=== PATIENT | male | born 1980 | race Caucasian/White ===

== ENCOUNTER 2016-09-03 10:12 | Inpatient (IN) | payer OTHER ==
[~2016-09-03 10:12] MED LIST: IBUPROFEN800 MG PO; KEFLEX CAP 500500 MG PO; LISINOPRIL10 MG PO; NORCO 5-325 TA1 EACH PO; PERCOCET 10-321 EACH PO; PREDNISONE DOSE PACK; VENLAFAXINE H37.5 MG PO; VITAMIN C 500500 MG PO; VITAMIN D50000 UNIT PO
[2016-09-03 11:48] LABS: HEMOGLOBIN 12.7 gm/dl (14.0-17.5); RED BLOOD COUNT 4.42 M/UL (4.20-5.50)
[2016-09-03 12:06] LABS: BUN/CREATININE RATIO 13 (0-10)
[2016-09-03] MEDS ORDERED: PAXIL20 MG PO (17:46)
[2016-09-04 04:53] LABS: HEMOGLOBIN 12.5 gm/dl (14.0-17.5); RED BLOOD COUNT 4.36 M/UL (4.20-5.50); WHITE BLOOD COUNT 9.7 K/UL (4.5-11.0)
[2016-09-04 05:28] LABS: BUN/CREATININE RATIO 13 (0-10)
[2016-09-05 05:43] LABS: HEMOGLOBIN 13.6 gm/dl (14.0-17.5); RED BLOOD COUNT 4.68 M/UL (4.20-5.50)
[2016-09-05 05:48] LABS: WHITE BLOOD COUNT 7.2 K/UL (4.5-11.0)
[2016-09-05 05:56] LABS: BUN/CREATININE RATIO 11 (0-10)
[2016-09-06 06:05] LABS: BUN/CREATININE RATIO 14 (0-10)
[2016-09-07 06:24] LABS: HEMOGLOBIN 11.8 gm/dl (14.0-17.5)
[2016-09-07 07:15] LABS: BUN/CREATININE RATIO 10 (0-10)
[2016-09-08 06:16] LABS: BUN/CREATININE RATIO 7 (0-10)
[2016-09-10 05:59] LABS: RED BLOOD COUNT 4.23 M/UL (4.20-5.50); WHITE BLOOD COUNT 5.4 K/UL (4.5-11.0)
[2016-09-10 06:06] LABS: BUN/CREATININE RATIO 9 (0-10)
[2016-09-15 13:36] LABS: BUN/CREATININE RATIO 11 (0-10)
[2016-09-16 04:29] LABS: HEMOGLOBIN 12.1 gm/dl (14.0-17.5); RED BLOOD COUNT 4.25 M/UL (4.20-5.50); WHITE BLOOD COUNT 6.9 K/UL (4.5-11.0)
[2016-09-16 04:51] LABS: BUN/CREATININE RATIO 13 (0-10)
[2016-09-17 04:54] LABS: HEMOGLOBIN 12.5 gm/dl (14.0-17.5); RED BLOOD COUNT 4.37 M/UL (4.20-5.50); WHITE BLOOD COUNT 6.6 K/UL (4.5-11.0)
[2016-09-17 05:27] LABS: BUN/CREATININE RATIO 10 (0-10)
[2016-09-21 05:05] LABS: HEMOGLOBIN 12.4 gm/dl (14.0-17.5); RED BLOOD COUNT 4.34 M/UL (4.20-5.50); WHITE BLOOD COUNT 6.7 K/UL (4.5-11.0)
[2016-09-21 05:25] LABS: BUN/CREATININE RATIO 12 (0-10)
[2016-09-22 09:59] LABS: BUN/CREATININE RATIO 9 (0-10)
[2016-09-23 05:32] LABS: BUN/CREATININE RATIO 10 (0-10)
[2016-09-23] MEDS ORDERED: PERCOCET 5-3251 EACH PO (16:05)
== END 2016-09-23 17:04 | disposition home or self-care (01) | DRG 496 ==
LOC: ER1 10:12 → ZEROF 12:58 → MED SURG 4 12:58
PROVIDERS: Emergency Medicine; Family Medicine; Internal Medicine; Podiatrist Foot & Ankle Surgery; ADMIT Hospitalist
PROC: 0J9R0ZZ Drainage of Left Foot Subcutaneous Tissue and Fascia, Open Approach (ICD-10-PCS; principal; 2016-09-04 20:45)
PROC: 0QPK04Z Removal of Internal Fixation Device from Left Fibula, Open Approach (ICD-10-PCS; 2016-09-06)
PROC: 2W1MX6Z Compression of Left Lower Extremity using Pressure Dressing (ICD-10-PCS; 2016-09-06)
PROC: 02HV33Z Insertion of Infusion Device into Superior Vena Cava, Percutaneous Approach (ICD-10-PCS; 2016-09-17)
PROC: B548ZZA Ultrasonography of Superior Vena Cava, Guidance (ICD-10-PCS; 2016-09-17)
DX: T84.625A Infection and inflammatory reaction due to internal fixation device of left fibula, initial encounter (principal); M86.172 Other acute osteomyelitis, left ankle and foot; M86.672 Other chronic osteomyelitis, left ankle and foot; L03.116 Cellulitis of left lower limb; T81.4XXA Infection following a procedure, initial encounter; L02.416 Cutaneous abscess of left lower limb; B95.62 Methicillin resistant Staphylococcus aureus infection as the cause of diseases classified elsewhere; Y79.3 Surgical instruments, materials and orthopedic devices (including sutures) associated with adverse incidents; I10 Essential (primary) hypertension; D64.9 Anemia, unspecified; K59.00 Constipation, unspecified; F41.1 Generalized anxiety disorder; F17.200 Nicotine dependence, unspecified, uncomplicated; Z87.898 Personal history of other specified conditions; Z79.1 Long term (current) use of non-steroidal anti-inflammatories (NSAID); Z79.891 Long term (current) use of opiate analgesic; Z79.899 Other long term (current) drug therapy; Z98.890 Other specified postprocedural states
CPT/HCPCS: 36415; 73610; 80048; 80053; 80202; 82550; 83735; 85014; 85018; 85025; 85027; 85610; 85730; 86140; 87040; 87070; 87077; 87186; 87205; 96365; 96375; 97110; 97116; 97530; 99283; C1713; C9363; J0360; J1650; J2250; J2270; J2405; J2543; J2795; J3010; J3370; J7030; J7050; J7070; J7120

== ENCOUNTER → 2016-09-24 | Outpatient (CLI) | payer OTHER ==
[~2016-09-24] MED LIST changes: +PAXIL20 MG PO; +PERCOCET 5-3251 EACH PO
== END ==
LOC: OPSV 12:30
DX: M86.8X7 Other osteomyelitis, ankle and foot (principal); B95.62 Methicillin resistant Staphylococcus aureus infection as the cause of diseases classified elsewhere
CPT/HCPCS: 96365; J0875; J7070

== ENCOUNTER 2016-10-01 16:02 | Emergency (ER) | payer OTHER | END 2016-10-01 21:00 | disposition left against medical advice (07) | LOC: ER1 16:02 | DX: Z53.21 Procedure and treatment not carried out due to patient leaving prior to being seen by health care provider (principal) ==

== ENCOUNTER → 2016-10-01 | Outpatient (CLI) | payer OTHER | LOC: OPSV 10:56 | DX: Z48.00 Encounter for change or removal of nonsurgical wound dressing (principal) | CPT/HCPCS: G0463 ==

== ENCOUNTER → 2016-10-08 | Outpatient (CLI) | payer OTHER ==
[~2016-10-08] VITALS: Ht 175.3 cm; Wt 79.4 kg
[2016-10-08 11:37] LABS: HEMOGLOBIN 13.7 gm/dl (14.0-17.5); RED BLOOD COUNT 4.75 M/UL (4.20-5.50); WHITE BLOOD COUNT 7.1 K/UL (4.5-11.0)
[2016-10-08 12:04] LABS: BUN/CREATININE RATIO 7 (0-10)
== END ==
LOC: OPSV 10:46
PROVIDERS: Internal Medicine
DX: M86.9 Osteomyelitis, unspecified (principal); B95.62 Methicillin resistant Staphylococcus aureus infection as the cause of diseases classified elsewhere
CPT/HCPCS: 36592; 80053; 85027; 86140; 96365; J0875; J7070

== ENCOUNTER → 2017-01-04 | Outpatient (CLI) | payer OTHER ==
[2017-01-04 12:20] LABS: HEMOGLOBIN 15.7 gm/dl (14.0-17.5); RED BLOOD COUNT 5.36 M/UL (4.20-5.50); WHITE BLOOD COUNT 9.8 K/UL (4.5-11.0)
== END ==
LOC: LAB 10:40
PROVIDERS: Podiatrist Foot & Ankle Surgery
DX: L03.119 Cellulitis of unspecified part of limb (principal)
CPT/HCPCS: 36415; 85027; 86140